=== PATIENT | female | born 1980 | race Hispanic/Latino ===

== ENCOUNTER 2017-06-28 22:35 | Inpatient (IN) | payer MEDICAID, OTHER ==
--- NOTE | 2017-06-28 22:46 | C.PDOC ---
History Of Present Illness 36 year old female presents to the ER as a transfer from [facility] for psychiatric admission accepted by Dr. Mccurdy. Patient was medically cleared by Dr. Burroughs earlier today. Patient denies any physical complaints at this time. Time Seen by Provider: 06/28/17 22:44 Chief Complaint (Nursing): Psychiatric Evaluation History Per: Patient History/Exam Limitations: no limitations Onset/Duration Of Symptoms: Days Current Symptoms Are (Timing): Still Present Modifying Factor(s): None Associated Symptoms: Depression Involuntary Hold By: None Recent travel outside of the [place]: No Past Medical History Reviewed: Historical Data, Nursing Documentation, Vital Signs Vital Signs: Last Vital Signs Temp 97.7 F 06/28/17 22:38 Pulse 74 06/28/17 22:38 Resp 18 06/28/17 22:38 BP 157/93 H 06/28/17 22:38 Pulse Ox 99 06/28/17 22:46 - Medical History PMH: Depression Surgical History: Cholecystectomy, Tonsillectomy Family History: States: Unknown Family Hx - Social History Hx Alcohol Use: No Hx Substance Use: No - Immunization History Hx Tetanus Toxoid Vaccination: No Hx Influenza Vaccination: No Hx Pneumococcal Vaccination: No Review Of Systems Except As Marked, All Systems Reviewed And Found Negative. Constitutional: Negative for: Fever, Chills Psych: Positive for: Depression Physical Exam - Physical Exam Appears: Non-toxic, Other (Depressed) Skin: Normal Color, Warm, Dry Head: Atraumatic, Normacephalic Eye(s): bilateral: Normal Inspection Chest: Symmetrical, No Tenderness Cardiovascular: Rhythm Regular Respiratory: Normal Breath Sounds, No Accessory Muscle Use Gastrointestinal/Abdominal: Soft, No Tenderness Neurological/Psych: Oriented x3, Normal Speech ED Course And Treatment O2 Sat by Pulse Oximetry: 99 (Room air) Pulse Ox Interpretation: Normal Disposition - Disposition Disposition: HOSPITALIZED Disposition Time: 22:45 Condition: STABLE Forms: [facility] (Sinhala) - POA Present On Arrival: None - Clinical Impression Clinical Impression: Depression - Scribe Statement The provider has reviewed the documentation as recorded by the Scribe Jose Correa All medical record entries made by the Scribe were at my direction and personally dictated by me. I have reviewed the chart and agree that the record accurately reflects my personal performance of the history, physical exam, medical decision making, and the department course for this patient. I have also personally directed, reviewed, and agree with the discharge instructions and disposition. Decision To Admit - Pt Status Changed To: Hospital Disposition Of: Inpatient - Admit Certification Admit to Inpatient:: After my assessment, the patient will require hospitalization for at least two midnights. This is because of the severity of symptoms shown, intensity of services needed, and/or the medical risk in this patient being treated as an outpatient. - InPatient: Physician Admission Certification: I certify that this patient requires 2 or more midnights of care for the following reason:: see note - . Bed Request Type: Psychiatry Admitting Physician: Marek Mccurdy Patient Diagnosis: Depression
--- NOTE | 2017-06-29 01:03 | PCM.BM ---
Treatment Plan Problems - Problems identified on initial assessmt Depression Date Initiated: 06/29/17 Time Initiated: 01:00 Assessment reference: NA Status: Active Anxiety Date Initiated: 06/29/17 Time Initiated: 01:01 Assessment reference: NA Status: Active Treatment assets and liabiliti Patient Assests: adapts well, cooperative, educated, ADL independent, physically healthy, good support system, negotiates basic needs - Milieu Protocol Maintain good personal hygiene: daily Encourage regular showers, daily Remind patient to perform daily oral care, daily Assist patient to perform ADL's Conduct patient checks and document Observation sheet: Q15 minutes Maintain personal safety: every shift Educate patient to report safety concerns to staff, every shift Monitor environment for contraband/sharps Medication safety: Monitor for expected outcome, potential side effects: every shift, Assess barriers to learning: every shift, Assess readiness for medication education: every shift
--- NOTE | 2017-06-29 01:05 | PCM.BM ---
Treatment assets and liabiliti Patient Assests: adapts well, cooperative, ADL independent, physically healthy, good support system, negotiates basic needs, cognitively intact Patient Liabilities: other
--- NOTE | 2017-06-29 01:07 | PCM.BM ---
<EsparzaDeena Katie - Last Filed: 06/29/17 02:27> Treatment Plan Problems - Problems identified on initial assessmt Depression Date Initiated: 06/29/17 Time Initiated: 15:00 Assessment reference: NA Status: Active Anxiety Date Initiated: 06/29/17 Time Initiated: 12:15 Assessment reference: NA Status: Active Treatment assets and liabiliti Patient Assests: adapts well, cooperative, ADL independent, physically healthy, good support system, negotiates basic needs, cognitively intact Patient Liabilities: relationship conflicts - Milieu Protocol Maintain good personal hygiene: every shift Encourage regular showers, every shift Remind patient to perform daily oral care, every shift Assist patient to perform ADL's Conduct patient checks and document Observation sheet: Q15 minutes Maintain personal safety: daily Educate patient to report safety concerns to staff, daily Monitor environment for contraband/sharps Medication safety: Monitor for expected outcome, potential side effects: daily, Assess barriers to learning: daily, Assess readiness for medication education: daily <Vanessa Julien - Last Filed: 07/01/17 11:14> Family Contact Family involvement: Family/SO is involved Family contact: Patient declines to allow family contact at present - Goals for Treatment Patient goals for treatment: "I need help with anxiety." Discharge/Continuing Care - Education Needs Education Needs: Patient Medication, Patient Coping Skills - Discharge Discharge Criteria: Tolerates medication w/o severe side effects, Reduction of target symptoms Discharge to:: Home, With Family - Treatment Team Participation Discussed with Family/SO: No Was Patient/Family/SO present at Treatment Team Meeting: Yes <Deborah Nichols - Last Filed: 07/01/17 11:15> - Diagnosis (1) Depression Status: Acute Interventions: 07/01/17 11:15 * Assess/adjust medications daily and /or as needed * See patient on an individual basis 7x/week to assess symptoms of depression * Monitor for side effects & effectiveness of medications *
[2017-06-29] MEDS: Pneumococcal 23-Valent Vaccine IM ONE ×2 (02:00→02:31)
--- NOTE | 2017-06-29 10:53 | PCM.PSYCH ---
Initial Psychiatric Evaluation - Initial Psychiatric Evaluation Type of Admission: Voluntary Legal Status: Capacity Chief Complaint (in patient's own words): I was feeling depressed and suicidal.' History of Present Illness and Precipitating Events: Pt is a 36 yo CF, , but unemployed lives with her and 5 children , came to the hospital with depressed mood and suicidal ideation. Patient reports that her is ex-marine and he is disabled. She has five children including 2 twins born 9 months ago. Pt reports that she takes care of her and 5 children everyday round the clock. Since past 1 month she is feeling increasingly depressed and stressed out. yesterday she became increasingly depressed, and developed suicidal ideation so she went to the [facility]. Pt as transferred to the for the continuation of care. Pt denies any past history of any inpatient psychiatric admissions and denies any h /o follow up with any psychiatrist. She reports depressed mood, feelings of hopelessness and helplessness, poor sleep and poor appetite. She denies any auditory or visual hallucinations or any paranoia. Patient denied any drinking or any substance abuse. Past medical history: Back pain, Ulcerative Colitis Current Medications: Active Medications Generic Name Dose Route Start Last Admin Trade Name Freq PRN Reason Stop Dose Admin Hydroxyzine HCl 25 mg 06/29/17 00:22 06/29/17 10:04 Atarax PO 25 mg Q6 PRN Administration Anxiety Pneumococcal Polyvalent Vaccine 0.5 ml 07/01/17 10:00 Pneumovax 23 Vaccine IM 07/01/17 10:01 .ONCE ONE Trazodone HCl 50 mg 06/29/17 00:22 06/29/17 00:39 Desyrel PO 50 mg HS PRN Administration Sleep Past Psychiatric History - Past Psychiatric History Previous Treatment History: None Pertinent Medical Hx (Current Medical&Sleep Prob, Allergies): Allergies Allergy/AdvReac Type Severity Reaction Status Date / Time No Known Allergies Allergy Unverified 06/28/17 22:38 No Known Home Med 06/28/17 Review of Systems - Review of Systems All systems: reviewed and no additional remarkable complaints except - Psychiatric Psychiatric: Anxiety, Depression, Hopelessness, Irritability, Suicidal Ideation Mental Status Examination - Personal Presentation Personal Presentation: Looks stated age - Affect Affect: Constricted, Depressed - Motor Activity Motor Activity: Psychomotor Retardation - Reliability in Providing Information Reliability in Providing Information: Fair - Speech Speech: Organized - Mood Mood: Depressed, Anxious - Formal Thought Process Formal Thought Process: No Impairment - Obsessions/Compulsions Obsessions: No Compulsions: No - Cognitive Functions Orientation: Person, Place, Situation, Time Sensorium: Alert Attention/Concentration: Attentive Abstract Thinking: [place] Estimate of Intelligence: Below average Judgement: Imparied, as evidence by: Poor judgement, Imparied, as evidence by: Lack of insight into illness - Risk Risk: Suicidal, Diminished functioning - Strength & Assets Inventory Strength & Assets Inventory: Intelligence, Family support DSM 5 DX - DSM 5 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
--- NOTE | 2017-06-30 13:31 | PCM.PYCHPN ---
Psychiatric Progress Note - Psychiatric Progress Note Patient seen today, length of contact: 15 min Patient Chief Complaint: I was feeling depressed and suicidal.' Problems Identified/Issues Discussed: Patient seen and evaluated, chart reviewed and discussed with the nurse. Patient reports depressed mood and at times feelings of hopelessness and helplessness. As per the staff patient remained isolated and withdrawn. She reports poor sleep and poor appetite. She remained tearful during the interview. She appears disheveled and unkempt. She is taking the medications and denies any side effects. Symptoms are improving and she needs more time for stabilization Supportive therapy and psychoeducation were given. Medication Change: Yes (Increase Zoloft) Medical Record Reviewed: Yes Mental Status Examination - Cognitive Function Orientation: Person, Place, Situation, Time Memory: Intact Attention: WNL Concentration: Poor Association: WNL Fund of Knowledge: Poor - Mood Mood: Depressed, Anxious - Affect Affect: Constricted, Depressed - Speech Speech: Soft - Formal Thought Process Formal Thought Process: No Impairment - Suicidal Ideation Suicidal Ideation: No - Homicidal Ideation Homicidal Ideation: No Goal/Treatment Plan - Goal/Treatment Plan Need for Continued Stay: Severe depression anxiety, Severe functional impairment Progress Toward Problem(s) and Goals/Treatment Plan: Major depressive disorder recurrent severe without psychotic features -CBT -Psychoeducation -Supportive therapy, group therapy, individual therapy -Zoloft 100 mg PO Daily -Remeron 15 mg pO QHS -Trazodone 50 mg by mouth daily at bedtime Ulcerative Colitis -Monitor signs and symptoms Back pain: -Monitor signs and symptoms - Smoking Cessation Smoking Cessation Initiated: No
[2017-07-01] MEDS ORDERED: Influenza Vaccine 60 mcg/0.5 mL SYR (4YR UP) IM ONE (10:00)
[2017-07-01] MEDS ORDERED: Pneumococcal 23-Valent Vaccine IM ONE (10:00)
--- NOTE | 2017-07-01 17:23 | PCM.PYCHPN ---
Psychiatric Progress Note - Psychiatric Progress Note Patient seen today, length of contact: 15 min Patient Chief Complaint: I was feeling depressed and suicidal.' Problems Identified/Issues Discussed: Patient seen and evaluated, chart reviewed and discussed with the nurse. Today she appears kempt and clean. She started coming out of her room. As per the staff patient remained isolated, withdrawn and depressed. Patient reports depressed mood and feelings of hopelessness and helplessness. She reports some improvement in her sleep and appetite. She remained tearful during the interview. She is taking the medications and denies any side effects. Symptoms are improving and she needs more time for stabilization Supportive therapy and psychoeducation were given. Medication Change: Yes (Increase Zoloft, increase Remeron) Medical Record Reviewed: Yes Mental Status Examination - Cognitive Function Orientation: Person, Place, Situation, Time Memory: Intact Attention: WNL Concentration: Poor Association: WNL Fund of Knowledge: Poor - Mood Mood: Depressed, Anxious - Affect Affect: Constricted, Depressed - Speech Speech: Soft - Formal Thought Process Formal Thought Process: No Impairment - Suicidal Ideation Suicidal Ideation: No - Homicidal Ideation Homicidal Ideation: No Goal/Treatment Plan - Goal/Treatment Plan Need for Continued Stay: Severe depression anxiety, Severe functional impairment Progress Toward Problem(s) and Goals/Treatment Plan: Major depressive disorder recurrent severe without psychotic features -CBT -Psychoeducation -Supportive therapy, group therapy, individual therapy -Zoloft 150 mg PO Daily -Remeron 30 mg pO QHS -Seroquel 100 mg by mouth daily at bedtime Ulcerative Colitis -Monitor signs and symptoms Back pain: -Monitor signs and symptoms
[2017-07-03 07:06] VITALS: O2SAT 99
--- NOTE | 2017-07-04 13:11 | PCM.PYCHPN ---
Psychiatric Progress Note - Psychiatric Progress Note Patient seen today, length of contact: 15 minute Patient Chief Complaint: "I sleep okay" Problems Identified/Issues Discussed: The pt is seen, chart reviewed, case discussed with staff. Patient reports sleeping well last night, although admits to some difficulty falling asleep as her mind "runs like a hamster wheel" when she tries to close her eyes. Patient was instructed that this is a typical response, and with appropriate time and treatment, this should resolve. Denies any other complaints.The pt is compliant with medications and reports no side-effects. Overall, her symptoms are improving and patient needs more time to stabilize. After care discussed, support and psychoeducation given. Medical Problems: Ulcerative colitis Diagnostic Results: Reviewed DSM 5 Symptoms Update: Improving with treatment Medication Change: Yes (Started gabapentin 300 mg twice a day) Medical Record Reviewed: Yes Mental Status Examination - Cognitive Function Orientation: Person, Place, Situation, Time Memory: Intact Attention: WNL Concentration: WNL Association: WNL Fund of Knowledge: WN Decription of patient's judgement and insights: Fair - Mood Mood: Anxious - Affect Affect: Other (Appropriate) - Speech Speech: Soft - Formal Thought Process Formal Thought Process: No Impairment Psychotic Thoughts and Behaviors: None - Suicidal Ideation Suicidal Ideation: No - Homicidal Ideation Homicidal Ideation: No Goal/Treatment Plan - Goal/Treatment Plan Need for Continued Stay: Remain at risks for inpatient hospitalization, Discharge may exacerbated symptoms, Severe functional impairment Progress Toward Problem(s) and Goals/Treatment Plan: Continue medications Support and psychoeducation daily Attend groups and activities daily Patient will go to [facility] outpatient for follow-up care after discharge from the hospital. Estimated Date of D/C: 07/07/17 - Smoking Cessation Smoking Cessation Initiated: No
[2017-07-04] MEDS ORDERED: Magnesium Hydroxide Susp 30 ml UD PO PRN (22:34)
--- NOTE | 2017-07-05 11:43 | PCM.PYCHPN ---
Psychiatric Progress Note - Psychiatric Progress Note Patient seen today, length of contact: 15 minute Patient Chief Complaint: "I'm feeling very tired. Otherwise my anxiety is very less" Problems Identified/Issues Discussed: The pt is seen, chart reviewed, case discussed with staff. Patient reports sleeping well last night, but is feeling very tired through out the day. She also admits to having mild tremors infrequently throughout the day. Also reported that after start of gabapentin her anxiety level is less. Patient was instructed that these are expected effects, encouraged to continue medication regimen and group therapy and these should resolve in time.. Denies any other complaints.The pt is compliant with medications and reports no side- effects. Overall, her symptoms are improving and patient needs more time to stabilize. After care discussed, support and psychoeducation given. Medical Problems: Ulcerative colitis Diagnostic Results: Reviewed DSM 5 Symptoms Update: Improving with treatment Medication Change: No Medical Record Reviewed: Yes Mental Status Examination - Cognitive Function Orientation: Person, Place, Situation, Time Memory: Intact Attention: WNL Concentration: WNL Association: WN Fund of Knowledge: [facility] Decription of patient's judgement and insights: Fair - Mood Mood: Anxious (Less than before) - Affect Affect: Other (Appropriate) - Speech Speech: Soft - Formal Thought Process Formal Thought Process: No Impairment - Suicidal Ideation Suicidal Ideation: No - Homicidal Ideation Homicidal Ideation: No Goal/Treatment Plan - Goal/Treatment Plan Need for Continued Stay: Remain at risks for inpatient hospitalization, Discharge may exacerbated symptoms, Severe functional impairment Progress Toward Problem(s) and Goals/Treatment Plan: Continue medications Support and psychoeducation daily Attend groups and activities daily Patient will go to [facility] outpatient for follow-up care after discharge from the hospital. Estimated Date of D/C: 07/07/17 ([facility] outpatient) - Smoking Cessation Smoking Cessation Initiated: No
--- NOTE | 2017-07-06 10:44 | PCM.PYCHPN ---
Psychiatric Progress Note - Psychiatric Progress Note Patient seen today, length of contact: 15 minutes Patient Chief Complaint: "I feel a little better" Problems Identified/Issues Discussed: The pt is seen, chart reviewed, case discussed with staff. Patient reports sleeping well last night and feels a little better today. She describes her mood to be a "5/10" now, which is an improvement over the past few days. The pt is compliant with medications and reports no side-effects. Her symptoms continue to improve; patient needs more time to stabilize. After care discussed , support and psychoeducation given. Medical Problems: Ulcerative colitis Diagnostic Results: Reviewed Medication Change: No Medical Record Reviewed: Yes Mental Status Examination - Cognitive Function Orientation: Person, Place, Situation, Time Memory: Intact Attention: WNL Concentration: WNL Association: WNL Fund of Knowledge: [facility] Decription of patient's judgement and insights: Fair - Mood Mood: Anxious (Less than before) - Affect Affect: Other (Appropriate) - Speech Speech: Soft - Formal Thought Process Formal Thought Process: No Impairment - Suicidal Ideation Suicidal Ideation: No - Homicidal Ideation Homicidal Ideation: No Goal/Treatment Plan - Goal/Treatment Plan Need for Continued Stay: Remain at risks for inpatient hospitalization, Discharge may exacerbated symptoms, Severe functional impairment Progress Toward Problem(s) and Goals/Treatment Plan: Continue medications Support and psychoeducation daily Attend groups and activities daily Patient will go to [facility] outpatient for follow-up care after discharge from the hospital. Estimated Date of D/C: 07/07/17 ([facility] outpatient) - Smoking Cessation Smoking Cessation Initiated: No
--- NOTE | 2017-07-07 11:28 | PCM.PYCHPN ---
Psychiatric Progress Note - Psychiatric Progress Note Patient seen today, length of contact: 15 minutes Patient Chief Complaint: "I feel good" Problems Identified/Issues Discussed: The pt is seen, chart reviewed, case discussed with staff. Patient states that she feels a little tired, but well overall. She still describes her mood to be a "5/10" now. Patient states that her anxiety is much less today. The pt is compliant with medications and reports no side-effects. Her symptoms continue to improve. After care discussed, support and psychoeducation given. At the time of evaluation, patient had no delusions, no auditory or visual hallucinations, no suicidal ideations or homicidal ideations. Medical Problems: Ulcerative colitis Diagnostic Results: Reviewed DSM 5 Symptoms Update: Improving with treatment Medication Change: No Medical Record Reviewed: Yes Mental Status Examination - Cognitive Function Orientation: Person, Place, Situation, Time Memory: Intact Attention: WNL Concentration: WNL Association: [facility] Fund of Knowledge: [facility] Decription of patient's judgement and insights: Fair - Mood Mood: Anxious (Much less than before) - Affect Affect: Other (Appropriate) - Speech Speech: Soft - Formal Thought Process Formal Thought Process: No Impairment Psychotic Thoughts and Behaviors: None - Suicidal Ideation Suicidal Ideation: No - Homicidal Ideation Homicidal Ideation: No Goal/Treatment Plan - Goal/Treatment Plan Need for Continued Stay: Remain at risks for inpatient hospitalization, Discharge may exacerbated symptoms, Severe functional impairment Progress Toward Problem(s) and Goals/Treatment Plan: Continue medications Support and psychoeducation daily Attend groups and activities daily Patient will go to [facility] outpatient for follow-up care after discharge from the hospital. Estimated Date of D/C: 07/08/17 ([facility] outpatient) If changed, why: Patient's transportation only able to come tomorrow - Smoking Cessation Smoking Cessation Initiated: No
[2017-07-08 06:09] VITALS: RESP 20; TEMP 97.5
[2017-07-08 09:55] VITALS: BP 109/71; PULSE 89
--- NOTE | 2017-07-08 16:41 | PCM.PYCHDC ---
Mental Status Examination - Mental Status Examination Orientation: Person, Place, Situation, Time Memory: Intact Mood: Neutral Affect: Other (appropriate) Speech: Appropriate Attention: WNL Concentration: WNL Association: WNL Fund of Knowledge: WNL Formal Thought Process: No Impairment Description of patient's judgement and insight: Fair Psychotic Thoughts and Behaviors: None Suicidal Ideation: No Current Homicidal Ideation?: No Discharge Summary - Discharge Note Reason for Hospitalization: Major depressive disorder Laboratory Data: reviewed Consultations:: List each consultation separately and include: 1. Reason for request. 2. Findings. 3. Follow-up Summary of Hospital Course include:: 1. Description of specific treatment plan utilized for patients during their course of treatmen. 2. Summarize the time- course for resolution of acute symptoms and/or regressed behaviors. 3. Describe issues identified and worked on during hospitalization. 4. Describe medication utilized. 5. Describe medical problems identified and treated. 6. Reassessment of suicide risk Summary of Hospital Course: Pt is a 36 yo CF, , but unemployed lives with her and 5 children , came to the hospital with depressed mood and suicidal ideation. Patient reports that her is ex-marine and he is disabled. She has five children including 2 twins born 9 months ago. Pt reports that she takes care of her and 5 children everyday round the clock. Since past 1 month she is feeling increasingly depressed and stressed out. yesterday she became increasingly depressed, and developed suicidal ideation so she went to the [facility]. Pt as transferred to the for the continuation of care. Pt denies any past history of any inpatient psychiatric admissions and denies any h /o follow up with any psychiatrist. She reports depressed mood, feelings of hopelessness and helplessness, poor sleep and poor appetite. She denies any auditory or visual hallucinations or any paranoia. Patient denied any drinking or any substance abuse. patient was treated during her stay in the hospital. Was attending groups and other social activities on the unit. Patient started feeling better gradually. Today patient was stable and ready for discharge from the hospital. At the time of evaluation and discharge,patient was awake alert oriented 3, had no delusions, no auditory or visual hallucinations, no suicidal ideations or homicidal ideations. Patient was discharged in a stable condition. Patientwill have follow-up at [facility]. - Final Diagnosis (DSM 5) Condition upon Discharge: STABLE Disposition: HOME/ ROUTINE Follow-up Treatment Plan: Patient will go to [facility] for follow-up care after discharge from the hospital. Prescriptions/Medication Reconciliation: clonazePAM [Klonopin] 0.5 mg PO BID #10 tab Gabapentin [Neurontin] 300 mg PO BID #60 cap QUEtiapine [Seroquel] 100 mg PO HS #30 tab Sertraline [Zoloft] 150 mg PO DAILY #30 tab - Smoking Cessation Smoking Cessation Medication prescribed: No - Antipsychotic Medications Pt discharged on 2 or more routine antipsychotic medications: No
== END 2017-07-08 11:32 | disposition home or self-care (01) | DRG 430 ==
LOC: C.ER 22:35 → C.5E 22:46
PROC: GZ3ZZZZ Medication Management (ICD-10-PCS; principal; 2017-06-28)
PROC: GZHZZZZ Group Psychotherapy (ICD-10-PCS; 2017-06-28)
PROC: GZ56ZZZ Individual Psychotherapy, Supportive (ICD-10-PCS; 2017-06-28)
DX: F33.2 Major depressive disorder, recurrent severe without psychotic features (principal); R45.851 Suicidal ideations; K51.90 Ulcerative colitis, unspecified, without complications